=== PATIENT | male | born 1960 | race Caucasian/White ===

== ENCOUNTER 2020-12-10 13:02 | Outpatient (CLI) | payer BC, SELFPAY | END 2020-12-10 13:03 | disposition home or self-care (01) | LOC: ANHCOVIDVC 13:02 | PROVIDERS: PCP Family Medicine | DX: Z23 Encounter for immunization (principal) | CPT/HCPCS: 0001A; 91300 ==

== ENCOUNTER 2020-12-31 13:02 | Outpatient (CLI) | payer BC, SELFPAY | END 2020-12-31 13:03 | disposition home or self-care (01) | LOC: ANHCOVIDVC 13:02 | PROVIDERS: PCP Family Medicine | DX: Z23 Encounter for immunization (principal) | CPT/HCPCS: 0002A; 91300 ==

== ENCOUNTER 2023-11-23 13:30 | Outpatient (CLI) | payer BC, SELFPAY ==
--- NOTE | ~2023-11-23 | XR_ITS ---
EXAMINATION: XR chest 2V 11/23/2023 14:28 INDICATION: Chest pain PROCEDURE: 2 view chest COMPARISON: No prior studies for comparison. FINDINGS: The lungs are clear. The cardiomediastinal silhouette is within normal limits. There are no pleural effusions. There is no pneumothorax suspected. Mild dextrocurvature of the thoracic spin e. IMPRESSION: 1: NO ACUTE CARDIOPULMONARY DISEASE. Reviewed, dictated and finalized at location A. [facility]
--- NOTE | 2023-11-23 13:56 | ECG_ITS ---
Measurements Intervals [place] Rate: 61 P: 31 PA: 147 QRS: -7 QRSD: 110 T: -14 QT: 433 QTc: 438 Interpretive Statements SINUS RHYTHM MODERATE VOLTAGE CRITERIA FOR LVH, CONSIDER NORMAL VARIANT [MEETS CRITERIA IN ONE OF: R(aVL), S(V1), R(V5), R(V5/V6)+S(V1)] BORDERLINE ECG NO PREVIOUS ECG AVAILABLE FOR COMPARISON Electronically Signed On 11-24-2023 12:10:39 CORPORATE ADMINISTRATOR by Dima Knight M.D.
== END 2023-11-23 13:31 | disposition home or self-care (01) ==
PROVIDERS: PCP Family Medicine; Visit Provider Family Medicine
DX: R07.9 Chest pain, unspecified (principal)
CPT/HCPCS: 71046; 93005

== ENCOUNTER 2023-12-01 05:28 | Day surgery (SDC) | payer BC, SELFPAY ==
[2023-11-29 13:59] VITALS: BMI 37.0
--- NOTE | 2023-11-29 15:28 | SUR.PREOP ---
Pt pre-op interview completed on 11/29/23. Time and date confirmed.
[2023-12-01] VITALS (11 sets, daily range): BP systolic 136–192; BP diastolic 80–107; PULSE 46–62; RESP 11–24; TEMP 36.3; O2SAT 96–100
[2023-12-01] MEDS: LACTATED RINGERS 1,000 ML 150 ML IV CONT (07:08)
--- NOTE | 2023-12-01 07:52 | PM.HPGS ---
History of Present Illness History of Present Illness Consent: Risks, benefits, and alternatives have been discussed and questions answered. Patient agrees to proceed with procedure. Chief complaint: GERD Narrative: Antwon Sen is a 63 year old male with burping, chest discomfort and gerd- taking now esomeprazole and famotidine with only some relief, also had weight loss. CXR and blood work normal, never had egd. Review of Systems Constitutional: Constitutional: Denies headache(s) and Denies weakness Eyes: Eyes: Denies blurry vision ENT: Reports Normal hearing present, Denies headache(s) and Denies neck pain Cardiovascular: Cardiovascular: Denies chest pain and Denies dyspnea Respiratory: Respiratory: Denies dyspnea Gastrointestinal: Gastrointestinal: Reports no additional gastrointestinal complaints Genitourinary: Genitourinary: Denies dysuria Musculoskeletal: Musculoskeletal: Denies neck pain Integumentary/Breasts: Skin/Breast: Denies dry skin Neurologic: Reports Normal hearing present, Denies headache(s) and Denies weakness Psychiatric: Psychiatric: Denies anxiety Endocrine: Endocrine: Denies change in body appearance Hematologic/Lymphatic: Hematologic/Lymphatic: Denies easy bleeding Allergic/Immunologic: Allergic/Immunologic: Denies urticaria PMFSH Past Medical History Medical History (Updated 11/23/23 @ 17:49 by Francisco Pearson MD) BMI greater than 40 Chest pain Elevated blood pressure reading GERD without esophagitis Hyperlipidemia Nodule of finger of both hands Tonsillectomy planned Surgical History Surgical History Hx of colonoscopy Family History Family History (Updated 11/23/23 @ 11:12 by BETTIE Gomez) Father Cancer Mother Heart disease Sibling ALS (amyotrophic lateral sclerosis) Sibling Diabetes mellitus Social History Social History (Updated 11/23/23 @ 11:13 by BETTIE Gomez) Smoking status: Former smoker Tobacco type: cigars Second hand tobacco smoke exposure: No Alcohol intake: current Substance use: never Substance use type: does not use Do You Feel Safe in your Home?: Yes Lack of Transportation: No Lack of Food: Never True Current Housing: I Have Housing Concerned About Future Housing: No Difficulty Paying Gas/Electric Bills: No Difficulty Paying for Meds: No Currently Unemployed: No Education: Trade/Vocational Certificate Difficulty w/ Childcare or Family Care: No Living arrangements: with family Occupation/Education: occupation 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) Gender identity (if verbalized by the patient): Male Spiritual care concerns: No Meds Home Medications and Allergies Home Medications Medication Instructions Recorded Confirmed Type multivitamin with minerals-folic 2 tablet PO DAILY 02/28/23 11/29/23 History acid 200 mcg chewable tablet (Men's Multivitamin Gummies) losartan 50 mg tablet See Rx Instructions .Route 09/27/23 11/29/23 Rx .COMPLEX #90 tabs esomeprazole magnesium 40 mg 40 mg PO DAILY #30 caps 11/09/23 11/29/23 Rx capsule,delayed release alprazolam 0.5 mg tablet 0.5 mg PO TID PRN anxiety #60 tabs 11/23/23 11/29/23 Rx amlodipine 5 mg tablet (Norvasc) 5 mg PO DAILY #30 tabs 11/23/23 11/29/23 Rx famotidine 40 mg tablet See Rx Instructions .Route 11/23/23 11/29/23 Rx .COMPLEX #90 tabs metoprolol succinate 25 mg See Rx Instructions .Route 11/23/23 11/29/23 Rx tablet,extended release 24 hr .COMPLEX #90 tabs Allergies Allergy/AdvReac Type Severity Reaction Status Date / Time lisinopril AdvReac Cough Verified 12/01/23 06:54 Vital Signs Vital Signs - 24 hr 12/01/23 06:56 Temperature 97.4 F L Pulse Rate 62 Respiratory Rate 20 Blood Pressure 178/107 H Pulse Oximetry 100 Oxyge
--- NOTE | 2023-12-01 08:29 | WPDANESPN ---
Anes - Prog Note Post-Op Date/Time: 12/01/23 08:29 Cardiovascular status: normal Respiratory status: normal Airway patency: baseline Mental status: baseline (AAO x 3, smiling, laughing, conversant, face symmetrical, smile equal, no tongue deviation, denies symptoms, no pain) Post-Op hydration status: normal Vital Signs: Last Vital Signs Temp 36.3 C L 12/01/23 06:56 Pulse 62 12/01/23 06:56 Resp 20 12/01/23 06:56 BP 178/107 H 12/01/23 06:56 Pulse Ox 100 12/01/23 06:56 O2 Del Method Room Air 12/01/23 06:56 Pain Score (VAS): 0/10 I/O: Intake & Output 11/30/23 12/01/23 12/01/23 23:59 07:59 15:59 Intake Total 0 Balance 0 Patient Feedback: Patient satisfied with anesthetic care.
--- NOTE | 2023-12-01 08:29 | SUR.PHASEII ---
Pt.'s spouse states she noticed a slight facial droop on the right side of his mouth. Pt is currently drowsy after anesthesia. Neuro checks completed and are normal at this time. Pt states he feels ok. Dr. Putnam anesthesiologist at bedside to evaluate and neuro checks completed by physician. No new orders at this time.
[2023-12-01] MEDS: hydrALAZINE HCL 20 MG/ML VIAL 10 MG IV PUSH ×2 (08:47→09:11)
--- NOTE | 2023-12-01 08:53 | SUR.PHASEII ---
0843 Pt blood pressure 192/105. Dr. Putnam notified. New orders to give 10mg IV Hydralazine. Continue to monitor. 0850 Dr. Putnam at bedside to speak with pt and spouse.
--- NOTE | 2023-12-01 09:16 | SUR.PHASEII ---
0911 Pt continues to have elevated blood pressure. Hydralazine 10mg IV given as ordered per Dr. Putnam.
--- NOTE | 2023-12-01 09:33 | SUR.PHASEII ---
Addendum entered by Tesha Palomares RN 12/01/23 10:02: 0925 Pt and spouse declined ER evaluation at this time. Pt and spouse instructed to return to the ER if worsening symptoms or concerns. Pt discharged as ordered. Original Note: 0925 Blood pressure 166/88 after Hydralazine. Pt.'s face is flushed, no redness observed on any other part of of the body. Dr. Putnam notified and is at bedside. Dr. Putnam states neuro checks within normal limits but if pt and spouse are concerned they can take him to the ER. Dr. Putnam states ok for discharge at this time. Pt instructed to resume blood pressure medications at home today.
== END 2023-12-01 09:42 | disposition home or self-care (01) ==
PROVIDERS: PCP Family Medicine; Visit Provider Internal Medicine Gastroenterology
PROC: 0DJ08ZZ Inspection of Upper Intestinal Tract, Via Natural or Artificial Opening Endoscopic (ICD-10-PCS; CPT 43235; principal; 2023-12-01 08:00)
DX: K29.50 Unspecified chronic gastritis without bleeding (principal); K29.80 Duodenitis without bleeding; K31.A0 Gastric intestinal metaplasia, unspecified; K21.9 Gastro-esophageal reflux disease without esophagitis; I10 Essential (primary) hypertension; E78.5 Hyperlipidemia, unspecified; F17.290 Nicotine dependence, other tobacco product, uncomplicated; Z82.49 Family history of ischemic heart disease and other diseases of the circulatory system; Z80.9 Family history of malignant neoplasm, unspecified
CPT/HCPCS: 43239; 88305; J0360; J2704; J7120

== ENCOUNTER 2023-12-15 07:08 | Outpatient (CLI) | payer BC, SELFPAY ==
--- NOTE | ~2023-12-15 | US_ITS ---
NAME: Antwon Sen DATE OF : 64 EXAMINATION: US ABDOMEN COMPLETE DATE: 12/15/23 at 7:53 AM INDICATION: Midline heartburn. TECHNIQUE: Multiple grayscale and Doppler ultrasound images of the abdomen were obtained. COMPARISON: None FINDINGS: The visualized portions of the head, body, and tail of the pancreas are normal. There is diffuse hepatic steatosis. There is normal flow in main portal vein. The gallbladder is normal in size. No gallstones or gallbladder wall thickening. There was no sonographic Sauceda sign. The common duct is normal and measures 4 mm. The kidneys are normal in size. The spleen is normal in size. Abdominal aorta is normal in caliber. Inferior vena cava is normal. IMPRESSION: 1. Diffuse hepatic steatosis. Reviewed, dictated and finalized at location A. [facility]
== END 2023-12-15 07:09 | disposition home or self-care (01) ==
PROVIDERS: PCP Family Medicine; Visit Provider Internal Medicine Gastroenterology
DX: R14.2 Eructation (principal); K21.9 Gastro-esophageal reflux disease without esophagitis; R07.89 Other chest pain; K76.0 Fatty (change of) liver, not elsewhere classified
CPT/HCPCS: 76700

== ENCOUNTER 2023-12-19 10:13 | Outpatient (CLI) | payer BC, SELFPAY ==
--- NOTE | 2023-12-19 10:31 | EST_ITS ---
Patient Info Name: Antwon Sen Age: 63 years : 1960 Gender: Male Ht: 62 in Wt: 204 lbs BSA: 2.06 m2 HR: 55 bpm BP: 171 / 102 mmHg Heart Rhythm: Sinus Rhythm Exam Date: 12/19/2023 11:12 AM Exam Location: Echo Lab Patient Status: Outpatient Admit Date: 12/19/2023 Staff Ordering Physician: Francisco Pearson MD Attending Provider: Francisco Pearson MD Exercise Technologist: Ara Corona CT Exercise Physician: Stone Byers DO Exam Type: CA stress test treadmill Study Info Indications R07.89 - Other chest pain A treadmill exercise stress test was performed. Summary 1. 1. Negative Guilherme exercise stress test for ischemic ST changes by ECG criteria. However, patient achieved only 82% MPHR for age group which reduces sensitivity of the test. 2. 2. Reduced functional capacity, achieving 7 METs of workload. 3. 3. Baseline hypertension with hypertensive response to exercise. 4. 4. Appropriate HR response to exercise. 5. 5. Appropriate HR recovery at 1 minute post exercise. 6. 6. No imaging with stress testing. 7. 7. Patient informed of the above results. Protocol: Guilherme Stress ECG Details Stage: REST Duration (min): 7 min : 35 sec Speed (mph): 0.0 Grade (%): 0 HR (bpm): 58 SBP (mmHg): 171 DBP (mmHg): 102 METS: --- Stage: REST Duration (min): 12 min : 27 sec Speed (mph): 0.0 Grade (%): 0 HR (bpm): 59 SBP (mmHg): 171 DBP (mmHg): 102 METS: --- Stage: STAGE 1 Duration (min): 1 min : 0 sec Speed (mph): 1.7 Grade (%): 10 HR (bpm): 82 SBP (mmHg): 171 DBP (mmHg): 102 METS: --- Stage: STAGE 1 Duration (min): 2 min : 0 sec Speed (mph): 1.7 Grade (%): 10 HR (bpm): 102 SBP (mmHg): 171 DBP (mmHg): 102 METS: --- Stage: STAGE 1 Duration (min): 3 min : 0 sec Speed (mph): 1.7 Grade (%): 10 HR (bpm): 114 SBP (mmHg): 209 DBP (mmHg): 124 METS: --- Stage: STAGE 2 Duration (min): 1 min : 0 sec Speed (mph): 2.5 Grade (%): 12 HR (bpm): 125 SBP (mmHg): 209 DBP (mmHg): 124 METS: --- Stage: STAGE 2 Duration (min): 1 min : 56 sec Speed (mph): 2.5 Grade (%): 12 HR (bpm): 130 SBP (mmHg): 229 DBP (mmHg): 115 METS: --- Stage: RECOVERY Duration (min): 0 min : 3 sec Speed (mph): 1.5 Grade (%): 0 HR (bpm): 130 SBP (mmHg): 229 DBP (mmHg): 115 METS: --- Stage: RECOVERY Duration (min): 1 min : 3 sec Speed (mph): 0.0 Grade (%): 0 HR (bpm): 99 SBP (mmHg): 229 DBP (mmHg): 115 METS: --- Stage: RECOVERY Duration (min): 2 min : 3 sec Speed (mph): 0.0 Grade (%): 0 HR (bpm): 72 SBP (mmHg): 229 DBP (mmHg): 115 METS: --- Stage: RECOVERY Duration (min): 3 min : 3 sec Speed (mph): 0.0 Grade (%): 0 HR (bpm): 77 SBP (mmHg): 194 DBP (mmHg): 114 METS: --- Stage: RECOVERY Duration (min): 3 min : 16 sec Speed (mph): 0.0 Grade (%): 0 HR (bpm): 71 SBP (mmHg): 194 DBP (mmHg): 114 METS: --- Rest HR: 59 bpm Pea
== END 2023-12-19 10:14 | disposition home or self-care (01) ==
LOC: ANHCARD 10:14
PROVIDERS: PCP Family Medicine; Visit Provider Family Medicine
DX: R07.89 Other chest pain (principal); I10 Essential (primary) hypertension
CPT/HCPCS: 93017